=== PATIENT | female | born 1970 | race Caucasian/White ===

== ENCOUNTER 2017-08-24 09:17 | Outpatient (CLI) | payer BC ==
--- NOTE | 2017-09-10 09:27 | MMO ---
BILATERAL SCREENING MAMMOGRAM: Date: 08/24/17 INDICATION: Annual exam. COMPARISON: Prior exam dated 07/28/14. FINDINGS: Interpretation of this exam was assisted with computer-aided detection. The breast parenchyma is predominantly fatty replaced. There is a stable small benign-appearing density within the central aspect of the left breast, middle depth, likely reflecting a small lymph node. No suspicious mass, cluster of microcalcifications, or area of architectural distortion is evident. IMPRESSION: BIRADS 2: Benign Finding(s) Recommend routine annual mammographic screening. POS: [id number]
== END 2017-08-24 09:18 | disposition home or self-care (01) ==
LOC: MAMMO 09:17
PROVIDERS: ATTEND Nurse Practitioner Family
DX: Z12.31 Encounter for screening mammogram for malignant neoplasm of breast (principal)
CPT/HCPCS: 77067; G0202

== ENCOUNTER 2018-04-28 09:26 | Outpatient (CLI) | payer BC ==
[2018-04-28] MEDS ORDERED: Iopamidol 370 76% 100 ML VIAL ONE (15:01)
== END 2018-04-28 09:27 | disposition home or self-care (01) ==
LOC: BICCT 09:26
PROVIDERS: ATTEND Internal Medicine Gastroenterology
DX: K59.00 Constipation, unspecified (principal); R10.32 Left lower quadrant pain; M54.9 Dorsalgia, unspecified; R19.5 Other fecal abnormalities; Z83.71 Family history of colonic polyps; Z80.0 Family history of malignant neoplasm of digestive organs
CPT/HCPCS: 74177

== ENCOUNTER 2023-06-19 08:36 | Outpatient (CLI) | payer BC | END 2023-06-19 08:37 | disposition home or self-care (01) | LOC: BICMAMMO 08:36 | PROVIDERS: ATTEND Physician Assistant | DX: Z12.31 Encounter for screening mammogram for malignant neoplasm of breast (principal) | CPT/HCPCS: 77063; 77067 ==